=== PATIENT | female | born 1945 | race Caucasian/White ===

== ENCOUNTER 2025-05-17 13:49 | Emergency (ER) | payer BC, MEDICARE ==
[2025-05-17] MEDS ORDERED: Cephalexin 250 MG CAP ONE (16:06)
== END 2025-05-17 16:19 | disposition home or self-care (01) ==
LOC: CSHERS 13:49
DX: L30.9 Dermatitis, unspecified (principal); I10 Essential (primary) hypertension
CPT/HCPCS: 96372; 99282; J2919